=== PATIENT | female | born 1975 | race Caucasian/White ===

== ENCOUNTER 2021-10-05 14:32 | Emergency (ER) | payer OTHER ==
[2021-10-05 14:44] VITALS: BP 108/67; PULSE 92; TEMP 98.1; BMI 34.3
== END 2021-10-05 17:23 | disposition home or self-care (01) ==
LOC: JERFT 14:32
DX: S61.412A Laceration without foreign body of left hand, initial encounter (principal); W26.0XXA Contact with knife, initial encounter
CPT/HCPCS: 99283-25

== ENCOUNTER 2022-03-15 18:48 | Emergency (ER) | payer OTHER ==
[2022-03-15 18:56] VITALS: BP 117/75; PULSE 97; RESP 18; TEMP 98.1; BMI 32.5
[2022-03-15] MEDS ORDERED: IBUPROFEN 600 MG TABLET (FP) PO ONE ×2 (19:26→19:41)
== END 2022-03-15 19:46 | disposition home or self-care (01) ==
LOC: JER 18:48 → JERFT 18:48
DX: S93.401A Sprain of unspecified ligament of right ankle, initial encounter (principal); X50.0XXA Overexertion from strenuous movement or load, initial encounter
CPT/HCPCS: 73610-TC-RT-FY; 73630-TC-RT-FY; 99283-25

== ENCOUNTER 2023-04-02 12:05 | Emergency (ER) | payer OTHER ==
[2023-04-02 12:38] VITALS: BP 124/71; PULSE 81; RESP 17; TEMP 99.2; BMI 28.3
[2023-04-02] MEDS ORDERED: ACETAMINOPHEN 325 MG TABLET (FP) PO ONE (13:31)
[2023-04-02] MEDS ORDERED: LIDOCAINE 5% TOPICAL PATCH TP ONE (13:32)
[2023-04-02] MEDS ORDERED: LIDOCAINE 5% TOPICAL PATCH ONE (13:34)
[2023-04-02] MEDS ORDERED: ACETAMINOPHEN 325 MG TABLET (FP) ONE (13:34)
[2023-04-02] MEDS ORDERED: LIDOCAINE PATCH REMOVAL MC SCH (22:00)
== END 2023-04-02 14:50 | disposition home or self-care (01) ==
LOC: JERFT 12:05 → JER 12:05 → JERFT 14:50
DX: M54.50 Low back pain, unspecified (principal); R42 Dizziness and giddiness; R11.10 Vomiting, unspecified; R19.7 Diarrhea, unspecified; X50.1XXA Overexertion from prolonged static or awkward postures, initial encounter
CPT/HCPCS: 99283-25